=== PATIENT | male | born 2000 | race Caucasian/White ===

== ENCOUNTER 2018-05-05 09:11 | Emergency (ER) | payer BC, OTHER ==
[2018-05-05] MEDS ORDERED: Lidocaine 1% with EPINEPHrine 1:100,000 50 ML MDV INFILT ONE (09:45)
[2018-05-05] MEDS ORDERED: Bacitracin Oint 1 GM U/D Packet TOP ONE (09:46)
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
== END 2018-05-05 10:25 | disposition home or self-care (01) ==
LOC: JP.ED 09:11
DX: S01.81XA Laceration without foreign body of other part of head, initial encounter (principal); V87.8XXA Person injured in other specified noncollision transport accidents involving motor vehicle (traffic), initial encounter
CPT/HCPCS: 12013; 99283-25